=== PATIENT | female | born 1990 | race African-American/Black ===

== ENCOUNTER 2016-12-02 13:36 | Emergency (ER) | payer OTHER ==
[~2016-12-02] VITALS: Ht 175.3 cm; Wt 63.5 kg
[~2016-12-02 13:36] MED LIST: AMOXICILLIN500 MG ORAL; METRONIDAZOLE500 MG ORAL; NKM
[2016-12-02 14:00] VITALS: BP 130/83
[2016-12-02] MEDS ORDERED: NKM (14:02)
--- NOTE | 2016-12-02 15:26 | Emergency Room Report ---
History of Present Illness General Chief Complaint: Skin Rash/Abscess Source: Patient Present Illness HPI The patient is a 26-year-old female presenting with possible abscess of the right buttock. The patient states that she has had abscesses before and this feels similar. The last one was 5 years prior. The patient describes a 9/10 dull ache to the area and it does not radiate the patient denies any bleeding or discharge from the site. The patient noticed a bump 4 days prior. The patient denies any other symptoms including nausea, vomiting, fever, chills, dysuria, hematuria, diarrhea, constipation Allergies: Coded Allergies: NO KNOWN ALLERGIES (Unverified Allergy, Unknown, 12/03/15) Patient History Past Medical History: see triage record Pertinent Family History: none Last Menstrual Period: 11/30/2015 Reviewed Nursing Documentation: PMH: Agreed, PSxH: Agreed Nursing Documentation-PMH Past Medical History: No Stated History Review of Systems All Other Systems: negative except mentioned in HPI Physical Exam Vital Signs Date Time Temp Pulse Resp B/P Pulse Ox O2 Delivery O2 Flow Rate FiO2 12/02/16 14:00 98.8 101 18 130/83 99 Room Air Sp02 EP Interpretation: reviewed, normal General Appearance: no apparent distress, alert, GCS 15, non-toxic Head: normocephalic, atraumatic Eyes: bilateral eye PERRL, bilateral eye normal inspection ENT: hearing grossly normal, normal pharynx, no angioedema, normal voice Neck: full range of motion, supple/symm/no masses Genitourinary: normal inspection, no CVA tenderness Musculoskeletal: back normal, gait/station normal, normal range of motion Neurologic: alert, oriented x3, responsive, motor strength/tone normal, sensory intact, speech normal Psychiatric: judgement/insight normal, memory normal, mood/affect normal, no suicidal/homicidal ideation Skin: normal color, no rash, warm/dry, well hydrated, other - There is a 3 cm in diameter fluctuant abscess of the medial right buttock. Tender to palpation. No discharge. No surrounding erythema Procedures Incision and Drainage Incision and Drainage : Consent: Verbal Site: R buttock Blade Size: 11 I & D Procedure: betadine prep, sterile drapes applied, sterile dressing applied Wound Location: lower extremity Wound's Depth, Shape: superficial Wound Length (cm): 3 Wound Explored: contaminated Irrigated w/ Saline (ccs): 100 Anesthesia: 1% Lidocaine Volume Anesthetic (ccs): 2 Splint Applied?: No Sling Applied?: No Patient Tolerated: Well Complications: None Medical Decision Making PA Attestation Dr. Alejandra is my supervising physician. Patient management was discussed with my supervising physician Diagnostic Impression: Primary Impression: Abscess ER Course The patient is a 26-year-old female presenting with possible abscess of the right buttock. Ddx considered include but not limited to abscess, insect bite, contact dermatitis, eczema, cellulitis PE: vitals WNL. Afebrile. R buttock: There is a 3 cm in diameter fluctuant abscess of the medial right buttock. Tender to palpation. No discharge. No surrounding erythema Betadine prep was used to clean the skin and surrounding area. One percent lidocaine without epinephrine was used to anesthetize the are of planned incision. A #11 blade was used to make an incision in the central area of fluctuance approximately 1/3 the size of the diameter of the abscess. Once the incision was made, purulent material was expressed with blood. Blunt dissection was then used to release loculations and expressed more purulent material. Once only blood appeard to be expressed from the incision, normal saline was used to irrigate the inside of the abscess. The wound was then cleaned and sterile dressing applied. The patient will be discharged home with a prescription for Keflex. ER precautions are given Last Vital Signs Date Time Temp Pulse Resp B/P Pulse Ox O2 Delivery O2 Flow Rate FiO2 12/02/16 14:00 98.8 101 18 130/83 99 Room Air Status: improved Disposition: HOME, SELF-CARE Condition: Improved Scripts Cephalexin* (KEFLEX*) 500 Mg Capsule 500 MG ORAL EVERY 12 HOURS, #14 CAP 0 Refills Prov: PETE PINEDA 12/02/16 Referrals: [facility],REFERRING (PCP) PETE PINEDA Dec 02, 2016 15:26
[2016-12-02] MEDS ORDERED: Lidocaine 1% 10mg/ml/Epi 0.005mg/ml 30ml vial INJ ONE (15:30)
[2016-12-02] MEDS ORDERED: CEPHALEXIN500 MG ORAL (16:39)
[2016-12-02 16:55] VITALS: BP 125/79
== END 2016-12-02 16:56 | disposition home or self-care (01) ==
LOC: EMR 14:22
DX: L02.31 Cutaneous abscess of buttock (principal)
CPT/HCPCS: 10060